=== PATIENT | male | born 1965 | race African-American/Black ===

== ENCOUNTER → 2016-05-09 | Outpatient (CLI) | payer OTHER ==
[2016-05-09 08:17] LABS: HEMATOCRIT 43.1 % (39.0-51.0); MEAN CELL VOLUME 82.7 FL (80.0-100.0); MEAN CORPUSCULAR HEMOGLOBIN 27.1 PG (27.0-34.0); MEAN CORPUSCULAR HGB CONC 32.7 % (32.0-36.0); PLATELET COUNT 253 TH/MM3 (150-450); RED BLOOD COUNT 5.21 MIL/MM3 (4.50-5.90); RED CELL DISTRIBUTION WIDTH 13.6 % (11.6-17.2); REVIEW FLAG FINAL; WHITE BLOOD COUNT 3.8 TH/MM3 (4.0-11.0)
[2016-05-09 08:24] LABS: ANION GAP 8 MEQ/L (5-15); AST (GOT) 27 U/L (15-37); BICARBONATE 26.9 MEQ/L (21.0-32.0); BLOOD UREA NITROGEN 16 MG/DL (7-18); CHLORIDE 107 MEQ/L (98-107); GLOMERULAR FILTRATION RATE 76 ML/MIN (>89); GLUCOSE,FASTING 82 MG/DL (74-99); SODIUM (NA) 142 MEQ/L (136-145)
[2016-05-09 08:35] LABS: ALKALINE PHOSPHATASE 93 U/L (45-117); ALT (GPT) 30 U/L (12-78); HDL CHOLESTEROL 88.8 MG/DL (40.0-60.0); LDL CHOLESTEROL 119 MG/DL (0-99); TOTAL BILIRUBIN ADULT 0.5 MG/DL (0.2-1.0)
== END ==
LOC: CLAB 07:41
PROVIDERS: ATTEND Family Medicine
DX: R03.0 Elevated blood-pressure reading, without diagnosis of hypertension (principal)
CPT/HCPCS: 36415; 80053; 80061; 84443; 85027

== ENCOUNTER 2017-06-25 19:09 | Emergency (ER) | payer SELFPAY ==
[~2017-06-25] VITALS: Ht 180.3 cm; Wt 100.0 kg
[2017-06-25 19:15] VITALS: BP 166/85; PULSE 79; RESP 20; TEMP 98.6; O2SAT 100
--- NOTE | 2017-06-25 20:30 | RADRPT ---
EXAM DATE/TIME: 06/25/2017 19:36 [facility] COMPARISON: No previous studies available for comparison. INDICATIONS : Left ankle swelling. MEDICAL HISTORY : None. SURGICAL HISTORY : None. ENCOUNTER: Initial ACUITY: 1 day PAIN SCORE: 5/10 LOCATION: Left ankle FINDINGS: Three view exam was performed of the left ankle. The bony structures are in normal alignment. No ev idence of fracture, dislocation. Soft tissue swelling present. The ankle mortise is intact. No radio paque foreign bodies are seen. Bony mineralization is normal. CONCLUSION: 1. Soft tissue swelling at left ankle. No fracture identified. Cruzito Lopez MD on June 25, 2017 at 20:27 Board Certified Radiologist. This report was verified electronically.
--- NOTE | 2017-06-25 20:31 | RADRPT ---
EXAM DATE/TIME: 06/25/2017 19:38 [facility] COMPARISON: No previous studies available for comparison. INDICATIONS : Pain in right knee, swelling. MEDICAL HISTORY : None. SURGICAL HISTORY : None. ENCOUNTER: Initial ACUITY: 1 day PAIN SCORE: 5/10 LOCATION: Right knee FINDINGS: Four view examination of the right knee demonstrates no evidence of fracture or dislocation. Bony mi neralization is normal. The articular surfaces are intact. The suprapatellar soft tissues have a no rmal configuration. CONCLUSION: 1. No acute findings. Cruzito Lopez MD on June 25, 2017 at 20:28 Board Certified Radiologist. This report was verified electronically.
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
[2017-06-25] MEDS ORDERED: IBUP1TAB7 PO (20:50)
[2017-06-25] MEDS ORDERED: WALKER/ADULT/FO1 MIS (20:51)
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
== END 2017-06-25 21:26 | disposition home or self-care (01) ==
LOC: NEPK 19:09
DX: S99.912A Unspecified injury of left ankle, initial encounter (principal); S89.91XA Unspecified injury of right lower leg, initial encounter; G89.29 Other chronic pain; M25.552 Pain in left hip; V18.0XXA Pedal cycle driver injured in noncollision transport accident in nontraffic accident, initial encounter; Y93.55 Activity, bike riding; Z96.641 Presence of right artificial hip joint
CPT/HCPCS: 73502; 73564; 73610; 99284; E0113; L1906